=== PATIENT | female | born 1935 | race Caucasian/White ===

== ENCOUNTER → 2021-07-04 | Outpatient (CLI) | payer MEDICARE, OTHER ==
[~2021-07-04] MED LIST: AMLO5 PO; ASPI81EC; ATOR40TA PO; Coumadin2 MG PO; LOSA50 PO; METO100ER PO; METO25ER; ONDA4ODT MM; RXONDA4ODT MM; SIMV20; SIMV5 PO
[2021-07-07 10:02] LABS: Stool Occult Bld Immuno 1 Positive (NEGATIVE)
== END | disposition home or self-care (01) ==
LOC: LAB SHORT 20:00
PROVIDERS: Family Medicine
DX: Z12.11 Encounter for screening for malignant neoplasm of colon (principal)
CPT/HCPCS: G0328

== ENCOUNTER → 2021-07-07 | Outpatient (CLI) | payer MEDICARE, OTHER ==
[2021-07-07 12:29] LABS: Percent Saturation 10.9 % (15.0-50.0)
== END | disposition home or self-care (01) ==
LOC: LAB SHORT 11:31
PROVIDERS: Registered Nurse Oncology
DX: C50.919 Malignant neoplasm of unspecified site of unspecified female breast (principal); D64.9 Anemia, unspecified
CPT/HCPCS: 82728; 83540; 83550

== ENCOUNTER → 2021-08-04 | Outpatient (CLI) | payer MEDICARE, OTHER ==
[2021-08-04 15:13] LABS: BASOPHILS ABSOLUTE AUTO 0.03 K/mm3 (0.00-0.23); BASOPHILS PERCENT AUTO 1 % (0-2); EOSINOPHILS ABSOLUTE AUTO 0.02 K/mm3 (0.00-0.68); EOSINOPHILS PERCENT AUTO 0 % (0-6); Hematocrit 36.3 % (33.0-51.0); Hemoglobin 11.1 g/dL (11.5-16.0); IMMATURE GRAN ABSOLUTE AUTO 0.02 K/mm3 (0.00-0.10); IMMATURE GRAN PERCENT AUTO 0 % (0-1); LYMPHOCYTES ABSOLUTE AUTO 0.78 K/mm3 (0.84-5.20); LYMPHOCYTES PERCENT AUTO 15 % (21-46); MONOCYTES ABSOLUTE AUTO 0.43 K/mm3 (0.16-1.47); MONOCYTES PERCENT AUTO 9 % (4-13); Mean Corpuscular HGB 29.7 pg (26.0-34.0); Mean Corpuscular HGB Conc 30.6 g/dL (31.5-36.5); Mean Corpuscular Volume 97 fL (80-100); Mean Platelet Volume 11.4 fL (9.1-12.4); NEUTROPHILS ABSOLUTE AUTO 3.78 K/mm3 (1.96-9.15); NEUTROPHILS PERCENT AUTO 75 % (41-73); Platelet Count 161 K/mm3 (150-400); RDW Coefficient Variation 17.7 % (11.7-14.2); RDW Standard Deviation 63.3 fL (35.1-46.3); Red Blood Cell Count 3.74 M/mm3 (3.80-5.20); White Blood Cell Count 5.06 K/mm3 (4.00-11.30)
[2021-08-04 15:21] LABS: Albumin/Globulin Ratio 1.1 (0.8-1.8); Bilirubin, Total 1.1 mg/dL (0.1-1.0); Calcium, Blood 9.2 mg/dL (8.5-10.1); Creatinine, Blood 0.91 mg/dL (0.40-1.00); Globulin, Blood 3.8 g/dL (2.2-4.0); Potassium, Blood 3.5 mmol/L (3.5-5.5); Total Protein, Blood 7.8 g/dL (6.4-8.2)
== END | disposition home or self-care (01) ==
LOC: LAB SHORT 15:05
PROVIDERS: Physician Assistant
DX: R60.0 Localized edema (principal)
CPT/HCPCS: 80053; 83880; 84484; 85025

== ENCOUNTER 2021-09-10 08:35 | Day surgery (SDC) | payer MEDICARE, OTHER ==
[~2021-09-10] VITALS: Ht 162.6 cm; Wt 75.7 kg
--- NOTE | 2021-09-10 10:09 | NUR ---
History, Chart, Medications and Allergies reviewed before start of procedure. Patient confirms NPO status and agrees with scheduled surgery. Patient States Post-Procedure ride home has been arranged with friend, Johanna.
--- NOTE | 2021-09-10 10:58 | NUR ---
09/10/21 1058 Daysi Lozada History, Chart, Medications and Allergies reviewed before start of procedure.DR LEON PROVIDING ANESTHESIA SEE RECORDS
--- NOTE | 2021-09-10 11:34 | NUR ---
REPORT FROM SARAHI MIRAMONTES RN. PT AXOX4, REPOSITIONING SELF IN BED, REQUESTING AND TOLERATING PO FLUIDS AND FOOD. VISTING WITH AT BEDSIDE.
--- NOTE | 2021-09-10 12:07 | NUR ---
Patient up to Ambulate independently. Gait steady. Discharge instructions reviewed with patient. Patient verbalizes understanding. Copy given to patient to take home. Patient States Post-Procedure ride home has been arranged. Discharged via wheelchair to private car for ride home. ALL BELONGINGS RETURNED TO PATIENT.
== END 2021-09-10 23:30 | disposition home or self-care (01) ==
LOC: ORSCMMR 08:35 → ORD 11:00 → ORSCMMR 23:30
PROVIDERS: Surgery
PROC: 0DJD8ZZ Inspection of Lower Intestinal Tract, Via Natural or Artificial Opening Endoscopic (ICD-10-PCS; principal; 2021-09-10 11:00)
DX: K92.1 Melena (principal); K64.8 Other hemorrhoids; I48.91 Unspecified atrial fibrillation; Z79.01 Long term (current) use of anticoagulants; Z95.0 Presence of cardiac pacemaker; I10 Essential (primary) hypertension; Z79.899 Other long term (current) drug therapy; I50.9 Heart failure, unspecified; Z85.3 Personal history of malignant neoplasm of breast; Z85.118 Personal history of other malignant neoplasm of bronchus and lung
CPT/HCPCS: J2001; J2704; J7120

== ENCOUNTER 2022-04-01 10:09 | Emergency (ER) | payer MEDICARE, OTHER ==
[~2022-04-01] VITALS: Ht 162.6 cm; Wt 74.8 kg
== END 2022-04-01 11:32 | disposition home or self-care (01) ==
LOC: ER 10:09
DX: S93.602A Unspecified sprain of left foot, initial encounter (principal); W01.0XXA Fall on same level from slipping, tripping and stumbling without subsequent striking against object, initial encounter; I48.91 Unspecified atrial fibrillation; Z88.2 Allergy status to sulfonamides; Z88.8 Allergy status to other drugs, medicaments and biological substances; Z91.040 Latex allergy status; Z79.899 Other long term (current) drug therapy; Z79.01 Long term (current) use of anticoagulants
CPT/HCPCS: 71046; 73630

== ENCOUNTER → 2022-10-20 | Outpatient (CLI) | payer MEDICARE, OTHER ==
[~2022-10-20] MED LIST changes: +SPIR25 PO
[2022-10-20 16:00] LABS: BASOPHILS ABSOLUTE AUTO 0.02 K/mm3 (0.00-0.23); BASOPHILS PERCENT AUTO 0 % (0-2); EOSINOPHILS PERCENT AUTO 0 % (0-6); Hematocrit 37.4 % (33.0-51.0); Hemoglobin 11.5 g/dL (11.5-16.0); IMMATURE GRAN ABSOLUTE AUTO 0.02 K/mm3 (0.00-0.10); IMMATURE GRAN PERCENT AUTO 0 % (0-1); LYMPHOCYTES ABSOLUTE AUTO 0.59 K/mm3 (0.84-5.20); LYMPHOCYTES PERCENT AUTO 11 % (21-46); MONOCYTES ABSOLUTE AUTO 0.32 K/mm3 (0.16-1.47); MONOCYTES PERCENT AUTO 6 % (4-13); Mean Corpuscular HGB 29.8 pg (26.0-34.0); Mean Corpuscular HGB Conc 30.7 g/dL (31.5-36.5); Mean Corpuscular Volume 97 fL (80-100); Mean Platelet Volume 11.8 fL (9.1-12.4); NEUTROPHILS ABSOLUTE AUTO 4.39 K/mm3 (1.96-9.15); NEUTROPHILS PERCENT AUTO 82 % (41-73); Platelet Count 191 K/mm3 (150-400); RDW Coefficient Variation 15.2 % (11.7-14.2); RDW Standard Deviation 54.1 fL (35.1-46.3); Red Blood Cell Count 3.86 M/mm3 (3.80-5.20); White Blood Cell Count 5.34 K/mm3 (4.00-11.30)
[2022-10-20 16:10] LABS: Albumin, Blood 3.9 g/dL (3.4-5.0); Bilirubin, Total 1.6 mg/dL (0.1-1.0); Bun/Creatinine Ratio 27.2 (12.0-20.0); Calcium, Blood 9.5 mg/dL (8.5-10.1); Creatinine, Blood 0.85 mg/dL (0.40-1.00); Globulin, Blood 3.8 g/dL (2.2-4.0); Potassium, Blood 4.5 mmol/L (3.5-5.5); Total Protein, Blood 7.7 g/dL (6.4-8.2)
== END | disposition home or self-care (01) ==
LOC: LAB 14:24 → LAB SHORT 14:24
PROVIDERS: Physician Assistant
DX: R06.09 Other forms of dyspnea (principal)
CPT/HCPCS: 80053; 83880; 85025

== ENCOUNTER 2023-03-16 10:07 | Day surgery (SDC) | payer MEDICARE, OTHER ==
[~2023-03-16] VITALS: Ht 162.6 cm; Wt 79.0 kg
[~2023-03-16 10:07] MED LIST changes: +ANAS1 PO
[2023-03-16 11:48] VITALS: BP 168/72
[2023-03-16] MEDS ORDERED: Amoxicillin500 MG PO (11:50)
--- NOTE | 2023-03-16 13:18 | NUR ---
PT EATING LUNCH, DENIES PAIN OR DISCOMFORT. VSS, CALL LIGHT IN REACH. LEFT CHEST SITE REMAINS CLEAN AND DRY.
[2023-03-16 14:41] VITALS: BP 159/87
--- NOTE | 2023-03-16 14:41 | NUR ---
PT BACK TO RECOVERY ROOM VIA RECLINER AFTER PROCEDURE. AWAKE AND ALERT. COFFEE GIVEN PER REQUEST. VSS, CALL LIGHT IN REACH. LEFT CHEST SITE CLEAN AND DRY, NO BLEEDING OR SWELLING NOTED AROUND SITE.
[2023-03-16 15:00] VITALS: BP 158/117
[2023-03-16 15:25] VITALS: BP 167/60
[2023-03-16 15:30] VITALS: BP 151/63
[2023-03-16 16:00] VITALS: BP 165/82
--- NOTE | 2023-03-16 16:15 | NUR ---
IV DC'D, CATH INTACT. PT GIVEN DC INSTRUCTIONS AND FOLLOW UP INFO, VERBALIZED UNDERSTANDING. LEFT CHEST SITE CLEAN AND DRY, MEDIPORE DRESSING IN PLACE. NO SWELLING OR BRUISING NOTED AT SITE. PT OUT TO CAR VIA WHEELCHAIR.
== END 2023-03-16 16:15 | disposition home or self-care (01) ==
LOC: MHTC 10:07
DX: Z45.02 Encounter for adjustment and management of automatic implantable cardiac defibrillator (principal); I25.10 Atherosclerotic heart disease of native coronary artery without angina pectoris; I11.0 Hypertensive heart disease with heart failure; I50.30 Unspecified diastolic (congestive) heart failure; E78.5 Hyperlipidemia, unspecified; I48.21 Permanent atrial fibrillation; Z95.4 Presence of other heart-valve replacement; Z88.2 Allergy status to sulfonamides; Z79.01 Long term (current) use of anticoagulants; Z79.899 Other long term (current) drug therapy
CPT/HCPCS: 33229; 99152; 99153; C1781; C2621; J0690; J1644; J2250; J3010; J7030; J7040

== ENCOUNTER 2023-08-09 13:37 | Inpatient (IN) | payer MEDICARE, OTHER ==
[~2023-08-09] VITALS: Ht 162.6 cm; Wt 81.7 kg
[~2023-08-09 13:37] MED LIST changes: +Amoxicillin500 MG PO
[2023-08-09 15:37] LABS: BASOPHILS ABSOLUTE AUTO 0.03 K/mm3 (0.00-0.23); BASOPHILS PERCENT AUTO 1 % (0-2); EOSINOPHILS ABSOLUTE AUTO 0.02 K/mm3 (0.00-0.68); EOSINOPHILS PERCENT AUTO 1 % (0-6); Hemoglobin 7.4 g/dL (11.5-16.0); IMMATURE GRAN ABSOLUTE AUTO 0.01 K/mm3 (0.00-0.10); IMMATURE GRAN PERCENT AUTO 0 % (0-1); LYMPHOCYTES ABSOLUTE AUTO 0.73 K/mm3 (0.84-5.20); LYMPHOCYTES PERCENT AUTO 17 % (21-46); MONOCYTES ABSOLUTE AUTO 0.45 K/mm3 (0.16-1.47); MONOCYTES PERCENT AUTO 10 % (4-13); Mean Corpuscular HGB 24.5 pg (26.0-34.0); Mean Corpuscular HGB Conc 29.6 g/dL (31.5-36.5); Mean Corpuscular Volume 83 fL (80-100); Mean Platelet Volume 9.4 fL (9.1-12.4); NEUTROPHILS ABSOLUTE AUTO 3.12 K/mm3 (1.96-9.15); NEUTROPHILS PERCENT AUTO 72 % (41-73); NRBC ABSOLUTE 0.03 K/mm3 (0.00-0.02); NRBC Auto 0.7 /100 WBC (0.0-0.2); Platelet Count 257 K/mm3 (150-400); RDW Coefficient Variation 17.6 % (11.7-14.2); RDW Standard Deviation 53.4 fL (35.1-46.3); Red Blood Cell Count 3.02 M/mm3 (3.80-5.20); White Blood Cell Count 4.36 K/mm3 (4.00-11.30)
[2023-08-09] MEDS ORDERED: JANTOVEN2 MG PO (15:49)
[2023-08-09 15:50] LABS: Albumin, Blood 3.5 g/dL (3.4-5.0); Bun/Creatinine Ratio 26.6 (12.0-20.0); Calcium, Blood 9.5 mg/dL (8.5-10.1); Creatinine, Blood 0.79 mg/dL (0.40-1.00); Globulin, Blood 3.5 g/dL (2.2-4.0); Potassium, Blood 4.1 mmol/L (3.5-5.5)
[2023-08-09] MEDS ORDERED: VITAMIN D350 MC3 PO (15:50)
[2023-08-09 20:11] LABS: Source, Urine Clean Catch
[2023-08-09 20:31] LABS: Appearance, Urine Hazy (Clear); Bilirubin, Urine Neg (Neg); Blood, Urine 2+ (Neg); Color, Urine Yellow (P-Yellow); Glucose Qualitative, Urine Neg (Neg); Ketones, Urine 1+ (Neg); Leukocyte Esterase, Urine 1+ (Neg); Nitrite, Urine Pos (Neg); Protein, Urine 3+ (Neg); Specific Gravity, Urine 1.025 (1.003-1.022); Urobilinogen, Urine NORM (Normal)
[2023-08-09 20:44] LABS: Bacteria Many /hpf; Red Blood Cells, Urine 0-2 /hpf (0-2); Squamous Epithelial Cells Few /hpf (Few)
[2023-08-09] MEDS ORDERED: Furosemide 10 MG/ML 10ML Vial IV ONE (21:30)
[2023-08-09] MEDS ORDERED: CefTRIAXone Sodium 1,000 MG in NS 100 ML IV ONE (21:35)
[2023-08-09 21:55] LABS: Percent Saturation 3.5 % (15.0-50.0)
[2023-08-09 23:41] LABS: International Normalized Ratio 2.74; Prothrombin Time Results 27.2 Sec (9.7-11.5)
[2023-08-09] MEDS ORDERED: JANTOVEN1 M2 PO (23:58)
[2023-08-10] VITALS (9 sets, daily range): BP systolic 133–197; BP diastolic 61–76
[2023-08-10] MEDS ORDERED: Losartan Potassium 50 MG Tab PO SCH ×2 (00:50→21:00)
[2023-08-10] MEDS ORDERED: Warfarin Sodium 1 MG Tab PO ONE (01:00)
[2023-08-10] MEDS ORDERED: Ondansetron 4 MG SoluTab MM PRN (03:20)
[2023-08-10] MEDS ORDERED: NS 500 ML IV SCH (04:30)
[2023-08-10 05:04] LABS: Hematocrit 24.8 % (33.0-51.0); Hemoglobin 7.3 g/dL (11.5-16.0); Mean Corpuscular HGB 23.9 pg (26.0-34.0); Mean Corpuscular HGB Conc 29.4 g/dL (31.5-36.5); Mean Corpuscular Volume 81 fL (80-100); Mean Platelet Volume 9.7 fL (9.1-12.4); NRBC ABSOLUTE 0.02 K/mm3 (0.00-0.02); NRBC Auto 0.4 /100 WBC (0.0-0.2); Platelet Count 265 K/mm3 (150-400); RDW Coefficient Variation 17.9 % (11.7-14.2); RDW Standard Deviation 53.3 fL (35.1-46.3); Red Blood Cell Count 3.05 M/mm3 (3.80-5.20); White Blood Cell Count 5.01 K/mm3 (4.00-11.30)
[2023-08-10 05:15] LABS: International Normalized Ratio 3.06; Prothrombin Time Results 30.1 Sec (9.7-11.5)
[2023-08-10 05:27] LABS: Bun/Creatinine Ratio 25.8 (12.0-20.0); Calcium, Blood 9.5 mg/dL (8.5-10.1); Creatinine, Blood 0.78 mg/dL (0.40-1.00); Potassium, Blood 3.5 mmol/L (3.5-5.5)
--- NOTE | 2023-08-10 05:44 | NUR ---
T/F AND SUMMARY: REPORT RECIEVED FROM WILIAM FERNANDO RN AT 2322 AND PT T/F TO ROOM 311 VIA [facility] AT 2342. SHE'S A/OX4, WAS ORIENTED TO ROOM AND CALL SYSTEM AND IS ABLE TO SPECIFY NEEDS. PT REPORTS INCREASED WEAKNESS AND SOB W/EXERTION SO PREFERRED BEDREST TONIGHT. SHE PLANS TO REEVALUATE AMBULATING W/ASSIST TODAY. PUREWIC WAS PLACED FOR URINE FREQUENCY AND URGENCY R/T DIURESIS. 2+ EDEMA NOTED TO BLE'S AND EZRA HOSE PLACED W/LEGS ELEVATED IN BED. BP ELEVATED AND MD NOTIFIED W/SCHEDULED COZAAR RECIEVED PER EMAR. THEN REVIEWED PT'S CHART RE:PRBC'S RX'D IN ER THAT WEREN'T RECIEVED. HE WAS ALERTED TO BNP 673 AND BP REMAINING ELEVATED (185/76) IN PRESENCE OF CHF. HE INSTRUCTED TO ADMINISTER 1 UNIT PRBC'S BUT TO GIVE AM LOPRESSOR EARLY. PRBC'S VERIFIED W/TERRENCE (2ND RN) AND TRANSFUSION COMMENCED AT 0501. NO S/S ALLERGY OR ADVERSE REACTION AND PT IS ASYMPTOMATIC OF CARDIAC DISTRESS. LS ARE SLIGHTLY TIGHT W/FAINT WHEEZES, BD PROTOCOL RX'D AT THIS AM. NO ACUTE CHANGES, VSS. WCTM AND REPORT TO DAY RN.
[2023-08-10] MEDS ORDERED: Metoprolol Succinate 50 MG TABCR PO SCH ×2 (05:45→09:00)
[2023-08-10] MEDS ORDERED: Albuterol 2.5 MG/3 ML VIAL INH PRN (08:35)
[2023-08-10] MEDS ORDERED: Cholecalciferol 1000 Unit Tablet (=25MCG) PO SCH (09:00)
[2023-08-10] MEDS ORDERED: Anastrozole 1 MG TAB PO SCH (09:00)
[2023-08-10] MEDS ORDERED: Furosemide 10 MG/ML 4ML Vial IV SCH (09:00)
[2023-08-10] MEDS ORDERED: Warfarin Sodium 2 MG Tab PO SCH (18:00)
--- NOTE | 2023-08-10 18:04 | NUR ---
SUMMARY- PT [id number] THIS SHIFT. PT HAS INTERMITTENT CONFUSION REGARDING HER SITUATION, BUT IS DIRECTABLE. PT IS A SBA WITH WALKER TO THE BATHROOM. PT HAS HAD TO WEAR 1 L O2 INTERMITTENTLY TODAY TO KEEP O2 SATS ABOVE 90%. PT DENIES ANY PAIN. [place]AYE AWARE OF INTERROGATION OF PACEMAKER PERFORMED BY [facility] THIS SHIFT. DR. BOND ORDERED REPROGRAMMING OF PACEMAKER. PT ASYMPTOMATIC OF PACEMAKER ISSUES.
[2023-08-10] MEDS ORDERED: Atorvastatin 40 MG Tab PO SCH (21:00)
[2023-08-11] MEDS ORDERED: Sod Ferric Gluc Complx/Sucrose 125 MG in NS 100 ML IV SCH (00:30)
[2023-08-11 03:57] VITALS: BP 109/59
[2023-08-11 05:10] LABS: BASOPHILS ABSOLUTE AUTO 0.02 K/mm3 (0.00-0.23); BASOPHILS PERCENT AUTO 0 % (0-2); EOSINOPHILS PERCENT AUTO 2 % (0-6); Hematocrit 27.2 % (33.0-51.0); Hemoglobin 8.1 g/dL (11.5-16.0); IMMATURE GRAN ABSOLUTE AUTO 0.02 K/mm3 (0.00-0.10); IMMATURE GRAN PERCENT AUTO 0 % (0-1); LYMPHOCYTES ABSOLUTE AUTO 0.67 K/mm3 (0.84-5.20); LYMPHOCYTES PERCENT AUTO 11 % (21-46); MONOCYTES ABSOLUTE AUTO 0.78 K/mm3 (0.16-1.47); MONOCYTES PERCENT AUTO 13 % (4-13); Mean Corpuscular HGB 24.8 pg (26.0-34.0); Mean Corpuscular HGB Conc 29.8 g/dL (31.5-36.5); Mean Corpuscular Volume 83 fL (80-100); Mean Platelet Volume 10.1 fL (9.1-12.4); NEUTROPHILS ABSOLUTE AUTO 4.33 K/mm3 (1.96-9.15); NEUTROPHILS PERCENT AUTO 73 % (41-73); NRBC ABSOLUTE 0.05 K/mm3 (0.00-0.02); NRBC Auto 0.8 /100 WBC (0.0-0.2); Platelet Count 250 K/mm3 (150-400); RDW Coefficient Variation 17.6 % (11.7-14.2); RDW Standard Deviation 53.7 fL (35.1-46.3); Red Blood Cell Count 3.27 M/mm3 (3.80-5.20); White Blood Cell Count 5.92 K/mm3 (4.00-11.30)
[2023-08-11 06:00] LABS: Albumin, Blood 3.2 g/dL (3.4-5.0); Albumin/Globulin Ratio 1.1 (0.8-1.8); Bilirubin, Total 1.3 mg/dL (0.1-1.0); Bun/Creatinine Ratio 21.9 (12.0-20.0); Calcium, Blood 9.1 mg/dL (8.5-10.1); Creatinine, Blood 1.05 mg/dL (0.40-1.00); Potassium, Blood 3.4 mmol/L (3.5-5.5); Total Protein, Blood 6.2 g/dL (6.4-8.2)
[2023-08-11 06:01] LABS: International Normalized Ratio 3.22; Prothrombin Time Results 31.6 Sec (9.7-11.5)
--- NOTE | 2023-08-11 06:47 | NUR ---
SHIFT SUMMARY: PT A/O X 4, STANDBY ASSIST, PLEASANT AND COOPERATIVE WITH CARE. PT WAS UP TO BATHROOM A FEW TIMES THROUGH THE NIGHT. HAD NO COMPLAINTS OF PAIN. HAD NO CALLS FROM TELE. HGB NOW 8.1.
[2023-08-11 07:19] VITALS: BP 129/60
[2023-08-11] MEDS ORDERED: Cyanocobalamin 500 MCG Tab PO SCH (09:00)
--- NOTE | 2023-08-11 09:00 | NUR ---
pt sitting up on the side of the bed for breakfast, a/ox3, with periods of confusion, she told this nurse she's been in hosp since tuesday, pleasant and cooperative with care, follows commands well, denies complaints states she's feeling better, lungs are clear t/o, resp even and unlabored, on r/a, no cough noted, hrr, tele in place running paced afib, 3+ edema noted to b/l le, cap refill <3 sec, vs stable, afebrile, piv to lac, site is clear and patent, btx4, abd flat soft nontender, voids via bathroom, purwick durring the night, skin c/w/d, maew, ambulates with walker, shavonne, call light in reach.
[2023-08-11] MEDS ORDERED: Potassium Chloride 20 MEQ/15 ML UDC PO ONE (09:45)
[2023-08-11] MEDS ORDERED: Potassium Chloride 20 MEQ TabCR PO ONE (12:35)
[2023-08-11] MEDS ORDERED: Furosemide 10 MG/ML 4ML Vial IV SCH (18:00)
--- NOTE | 2023-08-11 18:41 | NUR ---
pt up ad moraima in her room, sits in chair for meals, states she's feeling good, no acute changes this shift. call light in reach.
[2023-08-11 19:25] VITALS: BP 112/63
--- NOTE | 2023-08-12 04:44 | NUR ---
SHIFT SUMMARY PATIENT IS ALERT AND ORIENTED. PATIENT HAS HAD NO ACUTE EVENTS THIS SHIFT. VITAL SIGNS REVIEWED. PATIENT HAS NOT COMPLAINED OF SOB, NAUSEA, VOMITTING OR PAIN THIS SHIFT. PATIENT HAS BEEN UP AD MAY WITH ADLS. BED IN LOCKED AND LOWEST POSITION. CALL LIGHT IN PLACE. WILL MONITOR UNTIL SHIFT CHANGE.
[2023-08-12 04:52] VITALS: BP 123/69
[2023-08-12 04:57] LABS: BASOPHILS ABSOLUTE AUTO 0.04 K/mm3 (0.00-0.23); BASOPHILS PERCENT AUTO 1 % (0-2); EOSINOPHILS ABSOLUTE AUTO 0.14 K/mm3 (0.00-0.68); EOSINOPHILS PERCENT AUTO 2 % (0-6); Hematocrit 27.9 % (33.0-51.0); Hemoglobin 8.1 g/dL (11.5-16.0); IMMATURE GRAN ABSOLUTE AUTO 0.03 K/mm3 (0.00-0.10); IMMATURE GRAN PERCENT AUTO 1 % (0-1); LYMPHOCYTES ABSOLUTE AUTO 0.98 K/mm3 (0.84-5.20); LYMPHOCYTES PERCENT AUTO 16 % (21-46); MONOCYTES ABSOLUTE AUTO 0.86 K/mm3 (0.16-1.47); MONOCYTES PERCENT AUTO 14 % (4-13); Mean Corpuscular HGB 24.3 pg (26.0-34.0); Mean Corpuscular Volume 84 fL (80-100); Mean Platelet Volume 10.3 fL (9.1-12.4); NEUTROPHILS ABSOLUTE AUTO 3.93 K/mm3 (1.96-9.15); NEUTROPHILS PERCENT AUTO 66 % (41-73); NRBC ABSOLUTE 0.08 K/mm3 (0.00-0.02); NRBC Auto 1.3 /100 WBC (0.0-0.2); Platelet Count 257 K/mm3 (150-400); RDW Coefficient Variation 18.1 % (11.7-14.2); RDW Standard Deviation 54.5 fL (35.1-46.3); Red Blood Cell Count 3.34 M/mm3 (3.80-5.20); White Blood Cell Count 5.98 K/mm3 (4.00-11.30)
[2023-08-12 05:10] LABS: International Normalized Ratio 2.22; Prothrombin Time Results 22.4 Sec (9.7-11.5)
[2023-08-12 05:32] LABS: Bilirubin, Total 0.9 mg/dL (0.1-1.0); Bun/Creatinine Ratio 27.5 (12.0-20.0); Calcium, Blood 8.9 mg/dL (8.5-10.1); Creatinine, Blood 1.02 mg/dL (0.40-1.00); Globulin, Blood 2.9 g/dL (2.2-4.0); Potassium, Blood 4.1 mmol/L (3.5-5.5); Total Protein, Blood 5.9 g/dL (6.4-8.2)
[2023-08-12 07:26] VITALS: BP 127/54
--- NOTE | 2023-08-12 12:02 | NUR ---
pt sitting up in chair a/ox3, forgetful, pleasant and cooperative with care, follows commands well, denies pain, states she feels good, slept well last night, lungs are clear t/o, resp even and unlabored, no cough noted, hrr, 2-3+ edema noted to b/l le, piv to lfa site is clear and patent, btx4, abd flat soft nontender, voids without diff, skin c/w/d, maew, shavonne, call light in reach.
[2023-08-12 15:35] VITALS: BP 126/58
--- NOTE | 2023-08-12 15:42 | NUR ---
ALERT AND ORIENTED, MAKES NEEDS CLEARLY KNOWN, NO S/S OF DISTRESS, RESTING AND REPORTS TO TURN LIGHTS OFF, SATS RA, VSS, CALL LIGHT WITH IN REACH
[2023-08-12] MEDS ORDERED: CefTRIAXone Sodium 1,000 MG in NS 100 ML IV SCH (16:00)
[2023-08-12] MEDS ORDERED: Warfarin Sodium 2 MG Tab PO SCH (18:00)
--- NOTE | 2023-08-12 19:17 | NUR ---
NO ACUTE CHANGES, ALERT AND ORIENTED TO ALL, STEADY GAIT WITH FWW, INDEPENDANT TO BATHROOM WITH FWW, VSS, NO SOB, LS CLEAR THROUGH OUT, CALL LIGHT WITH IN REACH, WILL RELAY TO PM RN
[2023-08-12 19:34] VITALS: BP 115/69
[2023-08-13 03:48] VITALS: BP 111/45
[2023-08-13 05:05] LABS: BASOPHILS ABSOLUTE AUTO 0.02 K/mm3 (0.00-0.23); BASOPHILS PERCENT AUTO 0 % (0-2); EOSINOPHILS PERCENT AUTO 2 % (0-6); Hematocrit 27.5 % (33.0-51.0); Hemoglobin 8.1 g/dL (11.5-16.0); IMMATURE GRAN ABSOLUTE AUTO 0.04 K/mm3 (0.00-0.10); IMMATURE GRAN PERCENT AUTO 1 % (0-1); LYMPHOCYTES PERCENT AUTO 16 % (21-46); MONOCYTES ABSOLUTE AUTO 0.93 K/mm3 (0.16-1.47); MONOCYTES PERCENT AUTO 15 % (4-13); Mean Corpuscular HGB 24.4 pg (26.0-34.0); Mean Corpuscular HGB Conc 29.5 g/dL (31.5-36.5); Mean Corpuscular Volume 83 fL (80-100); NEUTROPHILS ABSOLUTE AUTO 4.29 K/mm3 (1.96-9.15); NEUTROPHILS PERCENT AUTO 67 % (41-73); NRBC ABSOLUTE 0.09 K/mm3 (0.00-0.02); NRBC Auto 1.4 /100 WBC (0.0-0.2); Platelet Count 247 K/mm3 (150-400); RDW Coefficient Variation 18.5 % (11.7-14.2); RDW Standard Deviation 55.7 fL (35.1-46.3); Red Blood Cell Count 3.32 M/mm3 (3.80-5.20); White Blood Cell Count 6.38 K/mm3 (4.00-11.30)
[2023-08-13 05:18] LABS: International Normalized Ratio 1.9; Prothrombin Time Results 19.4 Sec (9.7-11.5)
[2023-08-13 05:54] LABS: Albumin, Blood 3.1 g/dL (3.4-5.0); Bilirubin, Total 0.7 mg/dL (0.1-1.0); Bun/Creatinine Ratio 27.3 (12.0-20.0); Calcium, Blood 9.2 mg/dL (8.5-10.1); Creatinine, Blood 0.88 mg/dL (0.40-1.00); Globulin, Blood 3.1 g/dL (2.2-4.0); Potassium, Blood 3.5 mmol/L (3.5-5.5); Total Protein, Blood 6.2 g/dL (6.4-8.2)
--- NOTE | 2023-08-13 06:20 | NUR ---
08/13/2023- PATIENT AAOX4, PLEASANT AND COOPERATIVE. PATIENT COMPLAINS OF NO BOWEL MOVEMENT SINCE 08/10/23; PRUNE JUICE AND EXERCISE OFFERED. BLE EDEMA 2+. HGB 8.1, HCT 27.5, RBC 3.32 AT 0429 LAB DRAW. CONTINENT AND INDEPENDENT MOBILITY WITH FWW; VOIDED ONCE AT NIGHT.
[2023-08-13 07:55] VITALS: BP 121/63
[2023-08-13 15:21] VITALS: BP 121/57
[2023-08-13] MEDS ORDERED: Sod Ferric Gluc Complx/Sucrose 125 MG in NS 100 ML IV SCH (16:00)
[2023-08-13] MEDS ORDERED: Warfarin Sodium 2 MG Tab PO ONE (18:00)
[2023-08-13 19:27] VITALS: BP 136/50
[2023-08-14 02:46] VITALS: BP 134/51
[2023-08-14 05:28] LABS: International Normalized Ratio 1.67; Prothrombin Time Results 17.2 Sec (9.7-11.5)
--- NOTE | 2023-08-14 06:16 | NUR ---
08/14/23: PATIENT FULLY ORIENTED; COOPERATIVE. AMBULATES INDEPENDENTLY WITH FWW. PATIENT DIURESING HER EDEMA WITH IV FUROSEMIDE. NO PRNS GIVEN THROUGH NIGHT. LOOKING FORWARD TO GOING HOME SOON.
[2023-08-14 07:58] VITALS: BP 135/57
[2023-08-14] MEDS ORDERED: B-121000 MC7 PO (11:26)
[2023-08-14] MEDS ORDERED: FURO40 PO (11:27)
--- NOTE | 2023-08-14 13:24 | NUR ---
DISCHARGE SUMMARY PT A/O X4 AND ADMITTED FOR CHF. 2+ PITTING EDEMA TO LOWER EXTREMITIES BUT IMPROVED FROM ADMISSION. PT HAD A RASH WITH TEDS, SO SENT HOME WITH [facility] WRAPS FOR COMPRESSION. MEDICATIONS ALL GIVEN PRIOR TO DC SO PT IS TO [facility] NEW MEDICATIONS TOMORROW. DC HOME AND HAS AN APPOINTMENT TO FOLLOW UP WITH PCP IN 3 DAYS.
[2023-08-14] MEDS ORDERED: Warfarin Sodium 3 MG Tab PO ONE (18:00)
[2023-08-16] MEDS ORDERED: Warfarin Sodium 1 MG Tab PO SCH (18:00)
== END 2023-08-14 14:14 | disposition home or self-care (01) | DRG 811 ==
LOC: ER 13:37 → MEDS 13:38 → ENPENDDIS 08-14 10:55 → MEDS 08-14 14:14
PROVIDERS: Internal Medicine; Nurse Practitioner Acute Care; Physician Assistant; ADMIT Student in an Organized Health Care Education/Training Program
PROC: 30233N1 Transfusion of Nonautologous Red Blood Cells into Peripheral Vein, Percutaneous Approach (ICD-10-PCS; 2023-08-09)
PROC: 4B02XSZ Measurement of Cardiac Pacemaker, External Approach (ICD-10-PCS; principal; 2023-08-10)
DX: D50.9 Iron deficiency anemia, unspecified (principal); I50.33 Acute on chronic diastolic (congestive) heart failure; J96.01 Acute respiratory failure with hypoxia; N39.0 Urinary tract infection, site not specified; I48.20 Chronic atrial fibrillation, unspecified; T82.857A Stenosis of other cardiac prosthetic devices, implants and grafts, initial encounter; B96.20 Unspecified Escherichia coli [E. coli] as the cause of diseases classified elsewhere; I25.5 Ischemic cardiomyopathy; I25.10 Atherosclerotic heart disease of native coronary artery without angina pectoris; E53.8 Deficiency of other specified B group vitamins; I73.9 Peripheral vascular disease, unspecified; I49.5 Sick sinus syndrome; I10 Essential (primary) hypertension; E78.5 Hyperlipidemia, unspecified; C50.919 Malignant neoplasm of unspecified site of unspecified female breast; I08.3 Combined rheumatic disorders of mitral, aortic and tricuspid valves; T78.49XA Other allergy, initial encounter; Z88.2 Allergy status to sulfonamides; Z88.8 Allergy status to other drugs, medicaments and biological substances; Z91.040 Latex allergy status; Z95.1 Presence of aortocoronary bypass graft; Z95.5 Presence of coronary angioplasty implant and graft; Z95.3 Presence of xenogenic heart valve; Z79.01 Long term (current) use of anticoagulants; Z79.811 Long term (current) use of aromatase inhibitors; Z85.118 Personal history of other malignant neoplasm of bronchus and lung; Z45.018 Encounter for adjustment and management of other part of cardiac pacemaker; C50.412 Malignant neoplasm of upper-outer quadrant of left female breast
CPT/HCPCS: 36415; 36430; 71046; 80048; 80053; 81001; 82140; 82607; 82728; 82746; 83540; 83550; 83690; 83880; 85025; 85027; 85610; 86850; 86870; 86900; 86901; 86902; 86905; 86922; 87077; 87086; 87186; 93005; 93010; 93280; 93306; 94640; 94664; 94760; 96374; 96376; 97110; 97116; 97161; 97530; 99285-25; A9270; G0378; J0696; J1940; J2916; J7040; P9016

== ENCOUNTER 2024-05-30 12:45 | Emergency (ER) | payer MEDICARE, OTHER ==
[~2024-05-30] VITALS: Ht 162.6 cm; Wt 74.8 kg
[~2024-05-30 12:45] MED LIST changes: +B-121000 MC7 PO; +FURO40 PO; +JANTOVEN1 M2 PO; +JANTOVEN2 MG PO; +VITAMIN D350 MC3 PO
[2024-05-30 13:55] LABS: BASOPHILS ABSOLUTE AUTO 0.03 K/mm3 (0.00-0.23); BASOPHILS PERCENT AUTO 1 % (0-2); EOSINOPHILS ABSOLUTE AUTO 0.07 K/mm3 (0.00-0.68); EOSINOPHILS PERCENT AUTO 2 % (0-6); Hematocrit 23.5 % (33.0-51.0); Hemoglobin 7.3 g/dL (11.5-16.0); IMMATURE GRAN ABSOLUTE AUTO 0.01 K/mm3 (0.00-0.10); IMMATURE GRAN PERCENT AUTO 0 % (0-1); LYMPHOCYTES ABSOLUTE AUTO 0.85 K/mm3 (0.84-5.20); LYMPHOCYTES PERCENT AUTO 18 % (21-46); MONOCYTES ABSOLUTE AUTO 0.44 K/mm3 (0.16-1.47); MONOCYTES PERCENT AUTO 9 % (4-13); Mean Corpuscular HGB Conc 31.1 g/dL (31.5-36.5); Mean Corpuscular Volume 93 fL (80-100); NEUTROPHILS ABSOLUTE AUTO 3.38 K/mm3 (1.96-9.15); NEUTROPHILS PERCENT AUTO 71 % (41-73); Platelet Count 305 K/mm3 (150-400); RDW Coefficient Variation 16.3 % (11.7-14.2); RDW Standard Deviation 55.8 fL (35.1-46.3); Red Blood Cell Count 2.52 M/mm3 (3.80-5.20); White Blood Cell Count 4.78 K/mm3 (4.00-11.30)
[2024-05-30 14:09] LABS: International Normalized Ratio 2.58; Prothrombin Time Results 25.7 Sec (9.7-11.5)
[2024-05-30 14:25] LABS: Albumin, Blood 3.6 g/dL (3.4-5.0); Bilirubin, Total 0.6 mg/dL (0.1-1.0); Bun/Creatinine Ratio 18.8 (12.0-20.0); Calcium, Blood 9.1 mg/dL (8.5-10.1); Creatinine, Blood 1.01 mg/dL (0.40-1.00); Globulin, Blood 3.6 g/dL (2.2-4.0); Potassium, Blood 3.9 mmol/L (3.5-5.5); Total Protein, Blood 7.2 g/dL (6.4-8.2)
[2024-05-30] MEDS ORDERED: AMLODIPINE BESYL5 MG PO (15:21)
[2024-05-30] MEDS ORDERED: K-Dur20 MEQ PO (15:22)
[2024-05-30] MEDS ORDERED: THERA-D2000 UNIT PO (15:24)
[2024-05-30] MEDS ORDERED: NS 1,000 ML IV ONE (20:40)
[2024-05-31 05:00] VITALS: BP 128/61
== END 2024-05-31 10:27 | disposition home or self-care (01) ==
LOC: ER 12:45
PROVIDERS: Student in an Organized Health Care Education/Training Program
DX: D50.9 Iron deficiency anemia, unspecified (principal); D51.9 Vitamin B12 deficiency anemia, unspecified; I10 Essential (primary) hypertension; Z91.040 Latex allergy status; Z88.8 Allergy status to other drugs, medicaments and biological substances; Z88.2 Allergy status to sulfonamides; Z79.02 Long term (current) use of antithrombotics/antiplatelets; Z79.899 Other long term (current) drug therapy; Z79.01 Long term (current) use of anticoagulants; Z79.811 Long term (current) use of aromatase inhibitors
CPT/HCPCS: 36430; 71046; 80053; 83880; 85025; 85610; 85730; 86850; 86870; 86900; 86901; 86902; 86922; 93005; 93010; 99285-25; J7030; P9016

== ENCOUNTER → 2024-06-27 | Outpatient (CLI) | payer MEDICARE, OTHER ==
[~2024-06-27] MED LIST changes: +AMLODIPINE BESYL5 MG PO; +K-Dur20 MEQ PO; +THERA-D2000 UNIT PO
[2024-06-27 14:20] LABS: International Normalized Ratio 3.86; Prothrombin Time Results 37.4 Sec (9.7-11.5)
== END ==
LOC: LAB SHORT 11:44 → LAB 11:44
PROVIDERS: Internal Medicine Cardiovascular Disease
DX: Z51.81 Encounter for therapeutic drug level monitoring (principal); I48.20 Chronic atrial fibrillation, unspecified
CPT/HCPCS: 85610

== ENCOUNTER 2024-08-23 09:18 | Emergency (ER) | payer MEDICARE, OTHER ==
[~2024-08-23] VITALS: Ht 162.6 cm; Wt 68.0 kg
[2024-08-23 18:19] VITALS: BP 142/62
== END 2024-08-23 18:20 | disposition home or self-care (01) ==
LOC: ER 09:18
DX: D64.9 Anemia, unspecified (principal); R53.1 Weakness; I48.91 Unspecified atrial fibrillation; I10 Essential (primary) hypertension; Z79.01 Long term (current) use of anticoagulants; Z79.899 Other long term (current) drug therapy; Z91.040 Latex allergy status; Z88.2 Allergy status to sulfonamides; Z88.8 Allergy status to other drugs, medicaments and biological substances

== ENCOUNTER 2024-10-05 11:46 | Day surgery (SDC) | payer MEDICARE, OTHER ==
[2024-10-05] MEDS ORDERED: NS 250 ML IV SCH (11:50)
[2024-10-05 15:16] VITALS: BP 97/81
[2024-10-05 15:35] VITALS: BP 101/43
[2024-10-05 16:42] VITALS: BP 116/54
[2024-10-05 17:15] VITALS: BP 104/69
== END 2024-10-05 17:15 | disposition home or self-care (01) ==
LOC: ATC 11:46
DX: C50.412 Malignant neoplasm of upper-outer quadrant of left female breast (principal); D50.9 Iron deficiency anemia, unspecified; I48.91 Unspecified atrial fibrillation; I11.0 Hypertensive heart disease with heart failure; I50.9 Heart failure, unspecified; I25.10 Atherosclerotic heart disease of native coronary artery without angina pectoris; E78.5 Hyperlipidemia, unspecified; Z17.0 Estrogen receptor positive status [ER+]; Z17.21 Progesterone receptor positive status; Z17.32 Human epidermal growth factor receptor 2 negative status; Z85.118 Personal history of other malignant neoplasm of bronchus and lung; Z87.891 Personal history of nicotine dependence; Z79.01 Long term (current) use of anticoagulants; Z79.2 Long term (current) use of antibiotics; Z79.811 Long term (current) use of aromatase inhibitors; Z79.899 Other long term (current) drug therapy; Z88.2 Allergy status to sulfonamides; Z95.0 Presence of cardiac pacemaker; Z95.1 Presence of aortocoronary bypass graft; Z95.2 Presence of prosthetic heart valve; Z90.2 Acquired absence of lung [part of]
CPT/HCPCS: 36430; 86850; 86870; 86900; 86901; 86902; 86922; J7050; P9016

== ENCOUNTER 2024-11-09 09:48 | Inpatient (IN) | payer MEDICARE, OTHER ==
[~2024-11-09] VITALS: Ht 162.6 cm; Wt 75.5 kg
[2024-11-09 10:37] LABS: BASOPHILS ABSOLUTE AUTO 0.02 K/mm3 (0.00-0.23); BASOPHILS PERCENT AUTO 0 % (0-2); EOSINOPHILS ABSOLUTE AUTO 0.07 K/mm3 (0.00-0.68); EOSINOPHILS PERCENT AUTO 2 % (0-6); Hematocrit 23.9 % (33.0-51.0); Hemoglobin 6.8 g/dL (11.5-16.0); IMMATURE GRAN ABSOLUTE AUTO 0.01 K/mm3 (0.00-0.10); IMMATURE GRAN PERCENT AUTO 0 % (0-1); LYMPHOCYTES ABSOLUTE AUTO 0.53 K/mm3 (0.84-5.20); LYMPHOCYTES PERCENT AUTO 12 % (21-46); MONOCYTES ABSOLUTE AUTO 0.58 K/mm3 (0.16-1.47); MONOCYTES PERCENT AUTO 13 % (4-13); Mean Corpuscular HGB Conc 28.5 g/dL (31.5-36.5); Mean Corpuscular Volume 100 fL (80-100); NEUTROPHILS ABSOLUTE AUTO 3.36 K/mm3 (1.96-9.15); NEUTROPHILS PERCENT AUTO 74 % (41-73); NRBC ABSOLUTE 0.00 K/mm3 (0.00-0.02); NRBC Auto 0.0 /100 WBC (0.0-0.2); Platelet Count 264 K/mm3 (150-400); RDW Coefficient Variation 21.5 % (11.7-14.2); RDW Standard Deviation 79.7 fL (35.1-46.3)
[2024-11-09 10:48] LABS: Alanine Aminotransfer (ALT/SGP 22.0 U/L (12-78); Albumin, Blood 3.1 g/dL (3.4-5.0); Albumin/Globulin Ratio 1.0 (0.8-1.8); Anion Gap 9.0 mmol/L (3-11); Aspartate Aminotrans (AST/SGOT 23.0 U/L (12-37); Bilirubin, Total 0.5 mg/dL (0.1-1.0); Blood Urea Nitrogen 20.0 mg/dL (8-24); CO2, Blood 29.0 mmol/L (21-32); Calcium, Blood 8.9 mg/dL (8.5-10.1); Chloride, Blood 107.0 mmol/L (98-108); Creatinine, Blood 0.96 mg/dL (0.40-1.00); Globulin, Blood 3.2 g/dL (2.2-4.0); Glucose, Blood 110.0 mg/dL (70-99); Potassium, Blood 3.6 mmol/L (3.5-5.5); Sodium, Blood 141.0 mmol/L (136-145); Total Protein, Blood 6.3 g/dL (6.4-8.2)
[2024-11-09] MEDS ORDERED: NS 1,000 ML IV ONE (14:03)
[2024-11-09 14:44] VITALS: BP 134/68
[2024-11-09] MEDS ORDERED: LORA10ER (14:57)
[2024-11-09] MEDS ORDERED: ALLEGRA ALLERG180 MG PO (14:59)
[2024-11-09] MEDS ORDERED: FEROSUL325 M1 PO (15:05)
[2024-11-09] MEDS ORDERED: IRON18 M1 PO (15:05)
[2024-11-09] MEDS ORDERED: ASCO500 PO (15:06)
[2024-11-09 16:05] VITALS: BP 143/61
[2024-11-09 16:42] VITALS: BP 146/64
[2024-11-09 17:00] VITALS: BP 151/54
[2024-11-09] MEDS ORDERED: Pantoprazole Sodium 40 MG Injection IV SCH (17:00)
[2024-11-09 17:52] VITALS: BP 149/74
--- NOTE | 2024-11-09 18:10 | NUR ---
ADMISSION AND SHIFT SUMMARY PATIENT ALERT AND INTERACTIVE. PATIENT STATES THAT SHE HAS BEEN DEALING WITH THIS ANEMIA FOR ABOUT A YEAR. PATIENT HAS BEEN GETTING TRANSFUSIONS MORE FREQUENTLY. PATIENT CURRENTLY ON 2ND UNIT OF PRBCS. FIRST UNIT STARTED IN ED. NO ACTIVE SIGNS OF BLEEDING NOTED. PATIENT TAKES IRON AT HOME. PATIENT IN PROCESS OF TRYING TO GET AN ENDOSCOPY AN OUTPATIENT. PATIENT SOB WITH 2ND UNIT. ORDER OBTAINED FOR IV LASIX. PATIENT DID NOT TAKE DIURETICS AT HOME THIS MORNING. MILD EDEMA NOTED OF LOWER EXTREMETIES THAT PATIENT STATES IS HER NORMAL. CALLUSED AREA NOTED ON BOTTOM OF L FOOT. PATIENT HAS HX OF FLAT FEET. PURWICK PLACED BECAUSE OF SOB AND EVENING DOSE OF LASIX. SON AT BEDSIDE. H&H TO BE REPEATED AFTER 2ND UNIT COMPLETE. O2 PLACED FOR COMFORT.BECAUSE OF SOB. BIOX 98.
[2024-11-09 18:57] VITALS: BP 144/71
[2024-11-09 21:30] LABS: Hematocrit 29.8 % (33.0-51.0); Hemoglobin 8.8 g/dL (11.5-16.0)
[2024-11-10] VITALS (7 sets, daily range): BP systolic 116–150; BP diastolic 49–69
--- NOTE | 2024-11-10 01:40 | NUR ---
PT MOANING IN HER ROOM. WENT INTO PT'S ROOM - PT HAVING DIFFICULTY BREATHING AND ASKING FOR ASSISTANCE FOR REPOSITIONING IN BED. PT INSTRUCTED ON PURSED LIP BREATHING AND REPOSITIONED BACK INTO BED FOR COMFORT. PT CURRENTLY ON 3L HUMIDIFIED O2 - SATS 87%, HR 70'S - TURNED O2 UP TO 4L AND WITH REPOSITIONING, PT SATS 91-93% ON 4L. LS WHEEZY THROUGHOUT THE LEFT LUNG, RIGHT LUNG CLEAR THROUGHOUT. CALL PLACED TO DR. KAUFFMAN - REVIEWED THE ABOVE - ORDERS OBTAINED.
[2024-11-10] MEDS ORDERED: Ipratropium/Albuterol SulF 2.5-0.5MG/3 ML Amp INH PRN (02:00)
--- NOTE | 2024-11-10 04:31 | NUR ---
SHIFT SUMMARY PATIENT HAD NO ACUTE CHANGES. ALERT ORIENTED AND BEDREST. TWO OF TWO PRBC FINISHED INFUSING FROM DAY SHIFT. DENIES CHEST PAIN AND N/V. REPORTS SOB AND RT IN FOR BREATHING TX ORDER BY HOSPITALIST DR KAUFFMAN. VSS/AFEBRILE. TELE MONITOR V-PAVED 70. ON 2L O2 PRN. PUREWICK IN PLACE. PIV INTACT. CALL LIGHT IN REACH. BED IN LOWEST POSITION. WILL CONTINUE TO MONITOR UNTIL DAY SHIFT NURSE ASSUMES CARE.
[2024-11-10 05:36] LABS: BASOPHILS ABSOLUTE AUTO 0.03 K/mm3 (0.00-0.23); BASOPHILS PERCENT AUTO 0 % (0-2); EOSINOPHILS ABSOLUTE AUTO 0.00 K/mm3 (0.00-0.68); EOSINOPHILS PERCENT AUTO 0 % (0-6); Hematocrit 29.2 % (33.0-51.0); Hemoglobin 8.7 g/dL (11.5-16.0); IMMATURE GRAN ABSOLUTE AUTO 0.04 K/mm3 (0.00-0.10); IMMATURE GRAN PERCENT AUTO 1 % (0-1); LYMPHOCYTES ABSOLUTE AUTO 0.24 K/mm3 (0.84-5.20); LYMPHOCYTES PERCENT AUTO 3 % (21-46); MONOCYTES ABSOLUTE AUTO 0.73 K/mm3 (0.16-1.47); MONOCYTES PERCENT AUTO 10 % (4-13); Mean Corpuscular HGB Conc 29.8 g/dL (31.5-36.5); Mean Corpuscular Volume 96 fL (80-100); NEUTROPHILS ABSOLUTE AUTO 6.65 K/mm3 (1.96-9.15); NEUTROPHILS PERCENT AUTO 87 % (41-73); NRBC ABSOLUTE 0.00 K/mm3 (0.00-0.02); NRBC Auto 0.0 /100 WBC (0.0-0.2); Platelet Count 242 K/mm3 (150-400); RDW Coefficient Variation 19.9 % (11.7-14.2); RDW Standard Deviation 70.4 fL (35.1-46.3)
[2024-11-10 06:02] LABS: Anion Gap 7.0 mmol/L (3-11); Blood Urea Nitrogen 19.0 mg/dL (8-24); CO2, Blood 31.0 mmol/L (21-32); Calcium, Blood 8.6 mg/dL (8.5-10.1); Chloride, Blood 107.0 mmol/L (98-108); Creatinine, Blood 0.95 mg/dL (0.40-1.00); Glucose, Blood 134.0 mg/dL (70-99); Potassium, Blood 3.9 mmol/L (3.5-5.5); Sodium, Blood 141.0 mmol/L (136-145)
--- NOTE | 2024-11-10 08:28 | NUR ---
pt was found by RT to have low sats in the 80's while laying in bed, turned her o2 up to 8liters to get her up to 90's, she is currently fully awake, a/ox3-4, cooperative with care, follows commands well, lungs are dim in upper black[place], crackles in bases, occ exp wheeze, got her up to chair, sats are now 99%, turned down to 4 liters, no cough noted, hrr, tele in place is running vpaced per monitor, see strip, 2+ edema noted to b/l le, ppp+1, cap refill <3 sec, vs stable, afebrile, piv to lac site is clear and patent, btx4, abd flat soft nontender, briefs in place and purwick for incont, can abmulate with walker, did well transfering to chair, skin c/w/d, shavonne renae, call light in reach.
[2024-11-10] MEDS ORDERED: Cholecalciferol 1000 Unit Tablet (=25MCG) PO SCH (09:00)
[2024-11-10] MEDS ORDERED: CefTRIAXone Sodium 1,000 MG in NS 100 ML IV SCH (11:13)
[2024-11-10] MEDS ORDERED: Doxycycline Hyclate 100 MG in Dextrose 5% 250 ML IV SCH (11:14)
[2024-11-10] MEDS ORDERED: NS 250 ML IV PRN (11:25)
--- NOTE | 2024-11-10 13:11 | NUR ---
Pt vomited after eating lunch, states she feels some better after eating some pudding, gave her some clear soada and crackers, tele called during that time and reports an 8 beat run of vtach, pt not symptomatic, ambulated her into the bathroom with walker, call light in reach.
[2024-11-10 13:29] LABS: Hematocrit 30.1 % (33.0-51.0); Hemoglobin 8.8 g/dL (11.5-16.0)
--- NOTE | 2024-11-10 19:00 | NUR ---
pt has sat up in chair for lunch today, ambulated into the bathroom using a walker, and sba, has had a cough earlier today, not as much this evening, no further changes this shift. call light in reach.
[2024-11-10 21:05] LABS: Hematocrit 28.9 % (33.0-51.0); Hemoglobin 8.6 g/dL (11.5-16.0)
[2024-11-11 04:19] VITALS: BP 119/61
--- NOTE | 2024-11-11 04:24 | NUR ---
SHIFT SUMMARY PATIENT HAD NO ACUTE CHANGES. ALERT ORIENTED AND ONE ASSIST W/FWW TO BR. PATIENT AMBULATION IMPROVED FROM LAST NOC SHIFT. DENIES CHEST PAIN AND N/V. SOB W/EXERTION. ON 2L O2 NC. PIV INTACT. IV ABX INFUSED. TELE MONITOR V-PACE 70. UP IN CHAIR FOR FIRST PART OF SHIFT AND BACK IN BED. CALL LIGHT IN REACH. BED IN LOWEST POSITION. WILL CONTINUE TO MONITOR UNTIL DAY SHIFT NURSE ASSUMES CARE.
[2024-11-11 05:28] LABS: BASOPHILS ABSOLUTE AUTO 0.02 K/mm3 (0.00-0.23); BASOPHILS PERCENT AUTO 0 % (0-2); EOSINOPHILS ABSOLUTE AUTO 0.10 K/mm3 (0.00-0.68); EOSINOPHILS PERCENT AUTO 2 % (0-6); Hematocrit 26.9 % (33.0-51.0); Hemoglobin 8.0 g/dL (11.5-16.0); IMMATURE GRAN ABSOLUTE AUTO 0.03 K/mm3 (0.00-0.10); IMMATURE GRAN PERCENT AUTO 1 % (0-1); LYMPHOCYTES ABSOLUTE AUTO 0.40 K/mm3 (0.84-5.20); LYMPHOCYTES PERCENT AUTO 6 % (21-46); MONOCYTES ABSOLUTE AUTO 0.99 K/mm3 (0.16-1.47); MONOCYTES PERCENT AUTO 15 % (4-13); Mean Corpuscular HGB Conc 29.7 g/dL (31.5-36.5); Mean Corpuscular Volume 96 fL (80-100); NEUTROPHILS ABSOLUTE AUTO 5.05 K/mm3 (1.96-9.15); NEUTROPHILS PERCENT AUTO 77 % (41-73); NRBC ABSOLUTE 0.02 K/mm3 (0.00-0.02); NRBC Auto 0.3 /100 WBC (0.0-0.2); Platelet Count 214 K/mm3 (150-400); RDW Coefficient Variation 19.8 % (11.7-14.2); RDW Standard Deviation 69.6 fL (35.1-46.3)
[2024-11-11 05:53] LABS: Anion Gap 8.0 mmol/L (3-11); Blood Urea Nitrogen 17.0 mg/dL (8-24); CO2, Blood 30.0 mmol/L (21-32); Calcium, Blood 8.2 mg/dL (8.5-10.1); Chloride, Blood 105.0 mmol/L (98-108); Creatinine, Blood 0.82 mg/dL (0.40-1.00); Glucose, Blood 94.0 mg/dL (70-99); Potassium, Blood 3.5 mmol/L (3.5-5.5); Sodium, Blood 139.0 mmol/L (136-145)
--- NOTE | 2024-11-11 08:43 | NUR ---
pt sitting up on the side of the bed, awake, a/ox4, pleasant and cooperative with care, follows commands well, states she's breathing easier, sats are 99% on 2 liters o2 via n/c, turned off at this time to check on r/a, lungs are clear in upper blackburn, dim with fine crackles in bases, resp even and unlabored, no cough noted, states no sob at this time, hrr, murmur noted, tele in place running vpaced, piv to lac site is clear and patent, btx4, abd flat soft nontender, pull ups in place for incont, but does go to bathroom to void, skin c/w/d, shavonne renae, call light in reach.
[2024-11-11 08:53] VITALS: BP 131/53
[2024-11-11 15:11] VITALS: BP 119/52
[2024-11-11] MEDS ORDERED: PANT40 (15:25)
[2024-11-11] MEDS ORDERED: AMOCLA875 PO (15:25)
--- NOTE | 2024-11-11 16:21 | NUR ---
Pt is being discharged to home, went over discharge instructions with her and son in room they verbalized understanding, new meds faxed to [facility] per her request, piv was removed intact.
[2024-11-11 16:25] LABS: Hematocrit 29.0 % (33.0-51.0); Hemoglobin 8.5 g/dL (11.5-16.0)
--- NOTE | 2024-11-11 16:42 | NUR ---
pt left with all her belongings via wheelchair with corporate representative in attendence, son taking her home.
== END 2024-11-11 16:30 | disposition home or self-care (01) | DRG 811 ==
LOC: ER 09:48 → MEDS 09:49
PROVIDERS: Emergency Medicine; ADMIT Internal Medicine
PROC: 30233N1 Transfusion of Nonautologous Red Blood Cells into Peripheral Vein, Percutaneous Approach (ICD-10-PCS; principal; 2024-11-09)
DX: D50.9 Iron deficiency anemia, unspecified (principal); I50.33 Acute on chronic diastolic (congestive) heart failure; J96.02 Acute respiratory failure with hypercapnia; I48.20 Chronic atrial fibrillation, unspecified; K21.9 Gastro-esophageal reflux disease without esophagitis; I49.5 Sick sinus syndrome; E78.5 Hyperlipidemia, unspecified; I73.9 Peripheral vascular disease, unspecified; I25.10 Atherosclerotic heart disease of native coronary artery without angina pectoris; E53.8 Deficiency of other specified B group vitamins; I11.0 Hypertensive heart disease with heart failure; Z95.2 Presence of prosthetic heart valve; Z88.2 Allergy status to sulfonamides; Z88.8 Allergy status to other drugs, medicaments and biological substances; Z91.040 Latex allergy status; Z79.01 Long term (current) use of anticoagulants; Z79.899 Other long term (current) drug therapy; Z95.0 Presence of cardiac pacemaker; Z90.49 Acquired absence of other specified parts of digestive tract; Z90.710 Acquired absence of both cervix and uterus; Z98.890 Other specified postprocedural states; Z85.3 Personal history of malignant neoplasm of breast
CPT/HCPCS: 36415; 36430; 74177; 80048; 80053; 84145; 85014; 85018; 85025; 86850; 86870; 86900; 86901; 86902; 86922; 94640; 94664; 94760; 94761; 94762; 96365; 96366; 96368; 96375; 99284-25; A9270; G0378; J0696; J1938; J2470; J7030; J7050; J7060; P9016; Q9967

== ENCOUNTER 2025-02-02 11:20 | Emergency (ER) | payer MEDICARE, OTHER ==
[~2025-02-02] VITALS: Ht 162.6 cm; Wt 65.8 kg
[~2025-02-02 11:20] MED LIST changes: +ALLEGRA ALLERG180 MG PO; +AMOCLA875 PO; +ASCO500 PO; +FEROSUL325 M1 PO; +IRON18 M1 PO; +LORA10ER; +PANT40
[2025-02-02 11:52] LABS: BASOPHILS ABSOLUTE AUTO 0.03 K/mm3 (0.00-0.23); BASOPHILS PERCENT AUTO 1 % (0-2); EOSINOPHILS ABSOLUTE AUTO 0.02 K/mm3 (0.00-0.68); EOSINOPHILS PERCENT AUTO 1 % (0-6); Hematocrit 19.7 % (33.0-51.0); IMMATURE GRAN ABSOLUTE AUTO 0.02 K/mm3 (0.00-0.10); IMMATURE GRAN PERCENT AUTO 1 % (0-1); LYMPHOCYTES ABSOLUTE AUTO 0.43 K/mm3 (0.84-5.20); LYMPHOCYTES PERCENT AUTO 12 % (21-46); MONOCYTES ABSOLUTE AUTO 0.31 K/mm3 (0.16-1.47); MONOCYTES PERCENT AUTO 9 % (4-13); Mean Corpuscular HGB Conc 29.4 g/dL (31.5-36.5); Mean Corpuscular Volume 91 fL (80-100); NEUTROPHILS ABSOLUTE AUTO 2.81 K/mm3 (1.96-9.15); NEUTROPHILS PERCENT AUTO 78 % (41-73); NRBC ABSOLUTE 0.05 K/mm3 (0.00-0.02); NRBC Auto 1.4 /100 WBC (0.0-0.2); Platelet Count 307 K/mm3 (150-400); RDW Coefficient Variation 17.3 % (11.7-14.2); RDW Standard Deviation 57.6 fL (35.1-46.3)
[2025-02-02 11:54] LABS: Hemoglobin 5.8 g/dL (11.5-16.0)
[2025-02-02 12:13] LABS: Alanine Aminotransfer (ALT/SGP 25.0 U/L (12-78); Albumin, Blood 3.6 g/dL (3.4-5.0); Albumin/Globulin Ratio 1.1 (0.8-1.8); Anion Gap 12.0 mmol/L (3-11); Aspartate Aminotrans (AST/SGOT 27.0 U/L (12-37); Bilirubin, Total 0.7 mg/dL (0.1-1.0); Blood Urea Nitrogen 34.0 mg/dL (8-24); CO2, Blood 23.0 mmol/L (21-32); Calcium, Blood 9.0 mg/dL (8.5-10.1); Chloride, Blood 108.0 mmol/L (98-108); Creatinine, Blood 1.14 mg/dL (0.40-1.00); Globulin, Blood 3.2 g/dL (2.2-4.0); Glucose, Blood 123.0 mg/dL (70-99); Potassium, Blood 3.6 mmol/L (3.5-5.5); Sodium, Blood 139.0 mmol/L (136-145); Total Protein, Blood 6.8 g/dL (6.4-8.2)
[2025-02-02] MEDS ORDERED: NS 1,000 ML IV SCH (16:50)
[2025-02-02 23:00] VITALS: BP 151/52
[2025-02-02 23:15] LABS: Calcium, Ionized (POC) 1.21 mmol/L (1.10-1.46); Chloride (POC) 105 mmol/L (98-108); Creatinine (POC) 1.4 mg/dL (0.6-1.0); Glucose (ISTAT POC) 153 mg/dL (70-99); Hematocrit (POC) 22.0 % (36.0-46.0); Hemoglobin (POC) 7.5 g/dL (12.0-16.0); Potassium (POC) 3.6 mmol/L (3.5-5.5); Sodium (POC) 141 mmol/L (135-148); Total CO2 (POC) 22 mmol/L (21-32)
== END 2025-02-02 23:35 | disposition home or self-care (01) ==
LOC: ER 11:20
PROVIDERS: Emergency Medicine; Student in an Organized Health Care Education/Training Program
DX: N17.9 Acute kidney failure, unspecified (principal); D63.8 Anemia in other chronic diseases classified elsewhere; I48.91 Unspecified atrial fibrillation; I10 Essential (primary) hypertension; E78.5 Hyperlipidemia, unspecified; Z88.2 Allergy status to sulfonamides; Z91.040 Latex allergy status; Z88.8 Allergy status to other drugs, medicaments and biological substances; Z79.01 Long term (current) use of anticoagulants; Z79.899 Other long term (current) drug therapy; Z95.0 Presence of cardiac pacemaker
CPT/HCPCS: 36430; 80047; 80053; 85014; 85025; 86850; 86870; 86900; 86901; 86902; 86922; 93005; 93010; 99284-25; J7030; P9016